=== PATIENT | male | born 1980 | race African-American/Black ===

== ENCOUNTER → 2019-12-27 | Outpatient (CLI) | payer OTHER ==
--- NOTE | 2019-12-27 10:30 | US ---
EXAMINATION TYPE: US liver DATE OF EXAM: 12/27/2019 COMPARISON: NONE CLINICAL HISTORY: R74.8 Abnormal Liver enzymes. EXAM MEASUREMENTS: Liver Length: 13.1 cm Gallbladder Wall: 0.2 cm CBD: 0.3 cm Right Kidney: 10.7 x 4.9 x 4.6 cm Pancreas: Tail obscured by overlying bowel gas, visualized portions wnl Liver: wnl Gallbladder: wnl Evidence for sonographic Ennis's sign: No CBD: wnl Right Kidney: No hydronephrosis or masses seen IMPRESSION: No worrisome intrahepatic mass or intrahepatic ductal dilatation identified.
== END | disposition home or self-care (01) ==
LOC: RADUSWWP 10:02
PROVIDERS: ATTEND Family Medicine
DX: R74.8 Abnormal levels of other serum enzymes (principal)
CPT/HCPCS: 76705

== ENCOUNTER → 2020-04-03 | Outpatient (CLI) | payer OTHER ==
[2020-04-03 18:40] LABS: ALT 20 U/L (10-49); AST 30 U/L (14-35)
[2020-04-03 20:28] LABS: Hepatitis A Antibody IgM Non-Reactive (Non-Reactive); Hepatitis B Core IgM Non-Reactive (Non-Reactive); Hepatitis B Surface Antigen Non-Reactive (Non-Reactive); Hepatitis C IgG Antibody Reactive (Non-Reactive)
== END | disposition home or self-care (01) ==
LOC: LABWHC1 12:16
PROVIDERS: ATTEND Family Medicine
DX: R74.8 Abnormal levels of other serum enzymes (principal)
CPT/HCPCS: 36415; 80074; 84450; 84460

== ENCOUNTER 2020-05-13 15:24 | Emergency (ER) | payer OTHER ==
[2020-05-13 15:29] VITALS: RESP 18; TEMP 98.1
[2020-05-13] MEDS ORDERED: PROPARACAINE 0.5% OPHTH DROPS 15 ML BTL BOTH EYES STA (15:50)
[2020-05-13] MEDS ORDERED: FLUORESCEIN STRIPS 1 MG STRIP BOTH EYES ONE (16:15)
[2020-05-13] MEDS ORDERED: POLYMYXIN B-TRIMETHOPRIM SULF (10,000-1) OPHTH DROPS 10 ML BTL RIGHT EYE STA (16:19)
--- NOTE | 2020-05-13 16:28 | ED ---
Eye Problem HPI - General Chief complaint: Eye Problems Stated complaint: Eye Pain Time Seen by Provider: 05/13/20 15:42 Source: patient, RN notes reviewed, old records reviewed Mode of arrival: ambulatory Limitations: no limitations - History of Present Illness Initial comments: This is a 40-year-old male DF for evaluation of right eye pain today. Patient had 2 days of right eye pain worse on day 2 which is today. Significant discharge and redness of I, runny watery right eye. Patient states symptoms happened when he poked himself in the eye at work, he does not use any chemicals in his hands at work. No vision changes or other complaints MD chief complaint: eye pain (Right eye), eye redness -: days(s) Onset Description: sudden Location: right eye Place: work If Injury: direct trauma Eye Symptoms: burning, redness, discharge Severity: mild, moderate Severity scale (1-10): 4 If Pain, Quality: burning Consistency: constant Context: trauma Associated Symptoms: none Treatments Prior to Arrival: none - Related Data Home Medications Medication Instructions Recorded Confirmed Albuterol Inhaler (Mhu) [Ventolin 1 - 2 puff INHALATION Q6HR PRN 08/08/1409/19 Inhaler] Albuterol Nebulized [Ventolin 2.5 mg INHALATION Q4H 08/08/14 12/08/15 Nebulized] amLODIPine [Norvasc] 7.5 mg PO DAILY 08/08/14 12/08/15 Previous Rx's Medication Instructions Recorded Ondansetron Odt [Zofran Odt] 4 mg PO Q8HR PRN #30 tab 12/08/15 Allergies Allergy/AdvReac Type Severity Reaction Status Date / Time CATS Allergy Intermediate Wheezing Uncoded 05/13/20 15:29 Review of Systems ROS Statement: Those systems with pertinent positive or pertinent negative responses have been documented in the HPI. ROS Other: All systems not noted in ROS Statement are negative. 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 History of Any Multi-Drug Resistant Organisms: None Reported Past Surgical History: No Surgical Hx Reported Additional Past Anesthesia/Blood Transfusion Reaction / Comment(s): states has never received anesthesia Past Psychological History: No Psychological Hx Reported Smoking Status: Never smoker Past Alcohol Use History: Rare Past Drug Use History: Marijuana, Opiates - Past Family History Mother Family Medical History: No Reported History General Exam - General Exam Comments Initial Comments: fluorescein and guerra lap exam does show 5:00 corneal abrasion Limitations: no limitations General appearance: alert, in no apparent distress Head exam: Present: atraumatic, normocephalic, normal inspection Eye exam: Present: normal appearance, PERRL, EOMI. Absent: scleral icterus, conjunctival injection, periorbital swelling ENT exam: Present: normal exam, mucous membranes moist Neck exam: Present: normal inspection. Absent: tenderness, meningismus, lymphadenopathy Respiratory exam: Present: normal lung sounds bilaterally. Absent: respiratory distress, wheezes, rales, rhonchi, stridor Cardiovascular Exam: Present: regular rate, normal rhythm, normal heart sounds. Absent: systolic murmur, diastolic murmur, rubs, gallop, clicks GI/Abdominal exam: Present: soft, normal bowel sounds. Absent: distended, tenderness, guarding, rebound, rigid Extremities exam: Present: normal inspection, full ROM, normal capillary refill. Absent: tenderness, pedal edema, joint swelling, calf tenderness Back exam: Present: normal inspection Neurological exam: Present: alert, oriented X3, CN II-XII intact Psychiatric exam: Present: normal affect, normal mood Skin exam: Present: warm, dry, intact, normal color. Absent: rash Course Vital Signs 05/13/20 05/13/20 05/13/20 15:26 16:28 16:41 Temperature 98.1 F 98.1 F Pulse Rate 101 H 92 Respiratory 18 18 18 Rate Blood Pressure 142/87 134/82 O2 Sat by Pulse 100 100 Oximetry - Reevaluation(s) Reevaluation #1: 05/13/20 15:30 Medical record is reviewed patient does have improvement of symptoms in the ER Patient informed of findings and results, questions are answered Patient feeling better and feels good for discharge Medical Decision Making - Medical Decision Making 40 male to the ER for evaluation positive corneal abrasion is found. Patient can be discharged home Disposition Clinical Impression: Corneal abrasion, Abrasion of right eye Disposition: HOME SELF-CARE Condition: Good Instructions (If sedation given, give patient instructions): Corneal Abrasion (ED) Is patient prescribed a controlled substance at d/c from ED?: No Referrals: Daniel,Osei, MD [Primary Care Provider] - 1-2 days
[2020-05-13 16:42] VITALS: BP 134/82; PULSE 92
== END 2020-05-13 16:42 | disposition home or self-care (01) ==
LOC: EC 15:24
DX: S05.01XA Injury of conjunctiva and corneal abrasion without foreign body, right eye, initial encounter (principal); J45.909 Unspecified asthma, uncomplicated; I10 Essential (primary) hypertension; Z79.899 Other long term (current) drug therapy; Z91.048 Other nonmedicinal substance allergy status; Z91.09 Other allergy status, other than to drugs and biological substances
CPT/HCPCS: 99283

== ENCOUNTER → 2020-10-31 | Outpatient (CLI) | payer OTHER ==
[2020-10-31 18:28] LABS: Basophils # (A) 0.04 X 10*3/uL (0.00-0.10); Basophils % (A) 0.5 %; Eosinophils # (A) 0.26 X 10*3/uL (0.04-0.35); Eosinophils % (A) 3.3 %; HCT 42.8 % (39.6-50.0); HGB 14.7 g/dL (13.0-17.0); Lymphocytes # (A) 3.36 X 10*3/uL (0.90-5.00); Lymphocytes % (A) 42.6 %; MCHC 34.3 g/dL (32.0-37.0); MCV 93.2 fL (80.0-97.0); Mean Platelet Volume 10.1 fL (9.5-12.2); Monocytes # (A) 0.55 X 10*3/uL (0.20-1.00); Neutrophils # (A) 3.67 X 10*3/uL (1.80-7.70); Neutrophils % (A) 46.5 %; Platelet Count 194 X 10*3/uL (140-440); RBC 4.59 X 10*6/uL (4.40-5.60); RDW 12.7 % (11.5-14.5); WBC 7.89 X 10*3/uL (4.50-10.00)
[2020-10-31 20:49] LABS: Albumin 4.8 g/dL (3.80-4.90); Albumin/Globulin Ratio 1.92 (1.60-3.17); Bilirubin, Conjugated 0.2 mg/dL (0.20-0.40); Bilirubin,Unconjugated 0.4 mg/dL; Globulin 2.5 g/dL (1.6-3.3); Total Bilirubin 0.6 mg/dL (0.3-1.2); Total Protein 7.3 g/dL (6.2-8.2)
== END | disposition home or self-care (01) ==
LOC: LABWHC1 11:44
PROVIDERS: ATTEND Physician Assistant
DX: B18.2 Chronic viral hepatitis C (principal)
CPT/HCPCS: 36415; 80076; 85025; 87522